=== PATIENT | male | born 1970 | race Caucasian/White ===

== ENCOUNTER 2024-06-01 10:33 | Inpatient (IN) | payer OTHER ==
[2024-06-01 11:12] LABS: D-Dimer 0.375 FEUug/mL (0-0.500); PT Prothrombin Time 11.4 SECONDS (9.4-12.5); Protime INR 1.02
[2024-06-01] MEDS ORDERED: ASPIRIN 81 MG CHEWABLE TABLET ONE (11:13)
[2024-06-01 11:15] LABS: Absolute Basophils 0.1 K/uL (0-0.5); Absolute Eosinophils 0.2 K/uL (0-0.5); Absolute Lymphocytes (CBC) 2.6 K/uL (0.7-4.9); Absolute Monocytes 0.9 K/uL (0.1-1.3); Absolute Neutrophil 8.2 K/uL (1.8-8.0); Basophils % 0.7 % (0-1.3); Eosinophils % 1.6 % (0-4.4); Hematocrit 46.2 % (39.6-49.0); Hemoglobin 15.4 g/dL (13.6-17.9); Lymphocytes % 21.7 % (15.3-44.8); MCH 31.5 pg (27.0-35.0); MCHC 33.4 g/dL (32.0-36.0); MCV 94.4 fL (80-100); MPV 7.9 fL (7.6-11.3); Monocytes % 7.2 % (3.3-12.3); Neutrophils % 68.8 % (41.7-73.7); Platelets 256 thou/uL (152-406); RBC Red Blood Cell Count 4.89 M/uL (4.33-5.43); Red Cell Distribution Width 14.5 % (12.1-15.2)
[2024-06-01 11:23] LABS: ALT/SGPT 26 U/L (16-61); AST/SGOT 18 U/L (15-37); Albumin 3.7 g/dL (3.4-5.0); Albumin/Globulin Ratio 0.8 (1.1-1.8); Alkaline Phosphatase 103 U/L (45-117); Anion Gap 8.7 mEq/L (5.0-15.0); BUN Blood Urea Nitrogen 13 mg/dL (7-18); Bicarbonate 25 mEq/L (21-32); Bilirubin Total 0.4 mg/dL (0.2-1.0); Globulin 4.7 g/dL (2.3-3.5); Glomerular Filtration Rate 99 ml/min (=/>90); Glucose Level 102 mg/dL (74-106); Magnesium 1.9 mg/dL (1.6-2.4); NT PRO-BNP 21 pg/mL (<125); Potassium 3.7 mEq/L (3.5-5.1); Protein, Total 8.4 g/dL (6.4-8.2); Sodium Level 138 mEq/L (136-145); Troponin High Sensitivity 11.6 pg/mL (<58.9)
[2024-06-01 11:24] LABS: Bilirubin Direct < 0.2 mg/dL (0-0.2); Bilirubin Indirect, Calculated 0.2 mg/dL (0.2-0.8)
--- NOTE | 2024-06-01 12:19 | RAD REPORT ---
EXAMINATION: ONE VIEW CHEST XR CLINICAL INDICATION: Male, 53 years old.,CHEST PAIN TECHNIQUE: Frontal chest projection is submitted. Examination is limited by patient positioning and t echnique. COMPARISON: No prior exam. FINDINGS: The lungs are well inflated and clear. No pneumothorax or sizable effusion. The heart is normal in s ize. IMPRESSION: No acute intrathoracic abnormalities.
--- NOTE | 2024-06-01 12:47 | ER ---
Nurse's Notes [facility] Name: Andrew Kang Age: 53 yrs Sex: Male : 1970 Arrival Date: 06/01/2024 Time: 10:33 Bed 7 Private MD: Diagnosis: Chest pain, unspecified Presentation: 06/01 10:42 Chief complaint: Patient states: CP and L arm pain for 1 day. Coronavirus screen: ll1 Client denies travel out of the [place] in the last 14 days. At this time, the client does not indicate any symptoms associated with coronavirus-19. Ebola Screen: Patient denies travel to an Ebola-affected area in the 21 days before illness onset. Initial Sepsis Screen: Does the patient meet any 2 criteria? No. Patient's initial sepsis screen is negative. Does the patient have a suspected source of infection? No. Patient's initial sepsis screen is negative. Risk Assessment: Do you want to hurt yourself or someone else? Patient reports no desire to harm self or others. Onset of symptoms was June 01, 2024. 10:42 Method Of Arrival: Ambulatory 1 10:42 Acuity: KATERIN 3 ll1 10:43 Ebola Screen: No symptoms or risks identified at this time. Initial Sepsis Screen: Does ph the patient meet any 2 criteria? No. Patient's initial sepsis screen is negative. Does the patient have a suspected source of infection? No. Patient's initial sepsis screen is negative. Risk Assessment: Do you want to hurt yourself or someone else? Patient reports no desire to harm self or others. Onset of symptoms was June 01, 2024. Triage Assessment: 10:43 General: Appears uncomfortable, Behavior is calm, cooperative, appropriate for age. ll1 Pain: Complains of pain in chest Pain radiates to left arm. Cardiovascular: Reports chest pain. Historical: - Allergies: 10:42 No Known Allergies; ll1 - Home Meds: 10:42 None [Active]; ll1 - PMHx: 10:42 None; ll1 - PSHx: 10:42 None; ll1 - Immunization history:: Adult Immunizations up to date. - Social history:: Smoking status: Patient reports the use of cigarette tobacco products, smokes one pack cigarettes per day. Screenin:42 [facility] ED Fall Risk Assessment (Adult) History of falling in the last 3 months, ph including since admission No falls in past 3 months (0 pts) Confusion or Disorientation No (0 pts) Intoxicated or Sedated No (0 pts) Impaired Gait No (0 pts) Mobility Assist Device Used No (0 pt) Altered Elimination No (0 pt) Score/Fall Risk Level 0 - 2 = Low Risk Oriented to surroundings, Maintained a safe environment, Hourly rounding (assess needs \T\ fall precautionary measures) done. Abuse screen: Denies threats or abuse. Denies injuries from another. Nutritional screening: No deficits noted. Tuberculosis screening: No symptoms or risk factors identified. Assessment: 10:57 General: Appears in no apparent distress. Behavior is calm, cooperative. Pain: ph Complains of pain in anterior aspect of left upper chest Pain radiates to left arm Pain began woke w/ pain this morning, denies pain at this time. Neuro: Level of Consciousness is awake, alert, obeys commands, Oriented to person, place, time, situation. Cardiovascular: Reports chest pain, Rhythm is regular. Respiratory: Airway is patent Respiratory effort is even, unlabored. GI: No signs and/or symptoms were reported involving the gastrointestinal system. Derm: Skin is pink, warm \T\ dry. Musculoskeletal: Circulation, motion, and sensation intact. Range of motion: intact in all extremities. 12:30 Reassessment: Patient appears in no apparent distress at this time. Patient and/or ph family updated on plan of care and expected duration. Pain level reassessed. Patient is alert, oriented x 3, equal unlabored respirations, skin warm/dry/pink. Patient denies pain at this time. 14:00 Reassessment: Patient appears in no apparent distress at this time. Patient and/or ph family updated on plan of care and expected duration. Pain level reassessed. Patient is alert, oriented x 3, equal unlabored respirations, skin warm/dry/pink. Patient denies pain at this time. Vital Signs: 10:42 Pulse 84; Resp 17; Pulse Ox 95% ; Weight 95.25 kg; Height 5 ft. 9 in. ; ll1 10:58 BP 135 / 84; Pulse 77; Resp 18; Pulse Ox 97% on R/A; ph 12:00 BP 132 / 78; Pulse 76; Resp 18; Pulse Ox 98% on R/A; ph 12:49 BP 137 / 81; Pulse 77; Resp 18; Pulse Ox 98% on R/A; ph 14:30 BP 115 / 80; Pulse 75; Resp 19; Temp 97.5; Pulse Ox 97% on R/A; ph 15:30 BP 128 / 78; Pulse 73; Resp 16; Temp 97.8; Pulse Ox 99% on R/A; ph 10:42 Body Mass Index 31.01 (95.25 kg, 175.26 cm) ll1 Vitals: 10:58 Cardiac Rhythm Assessment Sinus rhythm. ph ED Course: 10:36 Patient arrived in ED. mg5 10:39 Peggy Doran, RN is Primary Nurse. ph 10:40 Gill Fitch PA-C is PHCP. sb4 10:40 Manny Rodriguez MD is Attending Physician. sb4 10:42 Arm band placed on Patient placed in an exam room, on a stretcher. ll1 10:42 Patient has correct armband on for positive identification. Bed in low position. Call light in reach. Side rails up X 1. Client placed on continuous cardiac and pulse oximetry monitoring. NIBP monitoring applied. monitoring and evaluation advisor on. Door closed. Noise minimized. 10:44 Triage completed. ll1 10:45 EKG done, by ED staff, reviewed by Peggy Doran RN. hb 10:50 Initial lab(s) drawn, by ak, sent to lab. Inserted saline lock: 20 gauge in right ph antecubital area, using aseptic technique. Blood collected. Flushed with 10 mL NS. Patient maintains SpO2 saturation greater than 95% on room air. 10:57 CBC with Diff Sent. ph 10:57 Basic Metabolic Panel Sent. ph 10:57 D-Dimer Sent. ph 10:57 LFT's Sent. ph 10:57 Magnesium Sent. ph 10:57 NT PRO-BNP Sent. ph 10:57 Troponin HS Sent. ph 10:57 PT-INR Sent. ph 11:29 No provider procedures requiring assistance completed. ph 11:40 XRAY Chest (1 view) In Process Unspecified. EDMS 12:46 Kameron Kinsey MD is Hospitalizing Provider. sb4 12:49 Patient admitted, IV remains in place. ph Administered Medications: 11:28 Drug: Aspirin PO Chewable Tablet 324 mg PO once; 81 mg tablets x 4 Route: PO; ph 12:00 Follow up: Response: No adverse reaction ph Medication: 10:43 VIS not applicable for this client. ph Outcome: 12:46 Decision to Hospitalize by Provider. sb4 15:50 Admitted to Tele accompanied by tech, via wheelchair, with chart, ph 15:50 Condition: good 15:50 Instructed on the need for admit, ph 15:55 Patient left the ED. kc6 Signatures: Dispatcher [employer] EDPeggy Coyle RN RN Krupa Swift RN RN Alla Rene RN RN ll1 Senait Layton RN RN kc6 Gill Fitch, PA-C PA-C sb4 Xiomara Roberto 5
--- NOTE | 2024-06-01 12:47 | EDPHYS ---
Physician Documentation [facility] Name: Andrew Kang Age: 53 yrs Sex: Male : 1970 Arrival Date: 06/01/2024 Time: 10:33 Bed 7 Private MD: ED Physician Manny Rodriguez HPI: 06/01 10:50 This 53 yrs old Male presents to ER via Ambulatory with complaints of Chest Pain. sb4 10:50 The patient or guardian reports chest pain that is located primarily in the substernal sb4 area. Onset: this morning. The pain radiates to the left arm. Associated signs and symptoms: Pertinent positives: shortness of breath. The chest pain is described as a heaviness. Duration: The patient or guardian reports multiple episodes, that wax and wane. Modifying factors: The symptoms are alleviated by rest, the symptoms are aggravated by exertion. The patient has not experienced similar symptoms in the past. 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 Historical: - Allergies: 10:42 No Known Allergies; ll1 - Home Meds: 10:42 None [Active]; ll1 - PMHx: 10:42 None; ll1 - PSHx: 10:42 None; ll1 - Immunization history:: Adult Immunizations up to date. - Social history:: Smoking status: Patient reports the use of cigarette tobacco products, smokes one pack cigarettes per day. ROS: 10:50 Constitutional: Negative for fever, chills, and weight loss, sb4 10:50 Cardiovascular: Positive for chest pain, 10:50 All other systems are negative, Exam: 10:50 Head/Face: Normocephalic, atraumatic. Eyes: Extra-ocular motions intact. Periorbital sb4 areas with no swelling, redness, or edema. ENT: Mucous membranes moist. Cardiovascular: Regular rate and rhythm with a normal S1 and S2. Respiratory: No increased work of breathing, no retractions or nasal flaring. Abdomen/GI: Soft, non-tender, no distension. Skin: Warm, dry with normal turgor. Normal color with no rashes, no lesions, and no evidence of cellulitis. 10:50 Constitutional: The patient appears alert, awake, uncomfortable, Vital Signs: 10:42 Pulse 84; Resp 17; Pulse Ox 95% ; Weight 95.25 kg; Height 5 ft. 9 in. ; ll1 10:58 BP 135 / 84; Pulse 77; Resp 18; Pulse Ox 97% on R/A; ph 12:00 BP 132 / 78; Pulse 76; Resp 18; Pulse Ox 98% on R/A; ph 12:49 BP 137 / 81; Pulse 77; Resp 18; Pulse Ox 98% on R/A; ph 14:30 BP 115 / 80; Pulse 75; Resp 19; Temp 97.5; Pulse Ox 97% on R/A; ph 15:30 BP 128 / 78; Pulse 73; Resp 16; Temp 97.8; Pulse Ox 99% on R/A; ph 10:42 Body Mass Index 31.01 (95.25 kg, 175.26 cm) ll1 MDM: 10:40 Medical Screening Exam initiated sb4 12:28 The patient was given aspirin in the Emergency Department. Scoring Tools HEART Score: sb4 History: ECG: Age: Risk Factors: > or = 3 Risk factors for atherosclerotic disease (2), Troponin: Total Score = 5. 12:45 Data reviewed: vital signs, nurses notes, lab test result(s), EKG, radiologic studies, sb4 and as a result, I will admit patient. Consideration of Admission/Observation Patient was admitted/placed on observation. Management of patient was discussed with the following: Golf Starter [employer] Ranger: yury, recommends admission for ACS rule out. Historians other than the Patient: Spouse/Significant Other: . Counseling: I had a detailed discussion with the patient and/or guardian regarding the historical points, exam findings, and any diagnostic results supporting the discharge/admit diagnosis, the presence of at least one elevated blood pressure reading (>120/80) during this emergency department visit, lab results, radiology results, the need for further work-up and treatment in the hospital. 06/01 10:45 Order name: Basic Metabolic Panel; Complete Time: 11:26 sb4 06/01 10:45 Order name: CBC with Diff; Complete Time: 11:17 sb4 06/01 10:45 Order name: D-Dimer; Complete Time: 11:13 sb4 06/01 10:45 Order name: LFT's; Complete Time: 11: sb4 06/01 10:45 Order name: Magnesium; Complete Time: 11:26 sb4 06/01 10:45 Order name: NT PRO-BNP; Complete Time: 11:26 sb4 06/01 10:45 Order name: PT-INR; Complete Time: 11:13 sb4 06/01 10:45 Order name: Troponin HS; Complete Time: 11:26 sb4 06/01 14:40 Order name: Basic Metabolic Panel EDMS 06/01 14:40 Order name: Basic Metabolic Panel EDMS 06/01 14:40 Order name: CBC with Automated Diff EDMS 06/01 14:40 Order name: CBC with Automated Diff EDMS 06/01 14:40 Order name: Lipid Profile EDMS 06/01 14:40 Order name: Lipid Profile EDMS 06/01 14:40 Order name: Troponin High Sensitivity EDMS 06/01 14:40 Order name: Troponin High Sensitivity EDMS 06/01 14:40 Order name: Troponin High Sensitivity EDMS 06/01 14:40 Order name: Troponin High Sensitivity EDMS 06/01 10:45 Order name: XRAY Chest (1 view); Complete Time: 12:25 sb4 06/01 14:40 Order name: Echo with Doppler EDMS 06/01 14:40 Order name: CONS Physician Consult EDMS 06/01 10:45 Order name: Cardiac monitoring; Complete Time: 10:57 sb4 06/01 10:45 Order name: EKG - Nurse/Tech; Complete Time: :57 sb4 06/01 10:45 Order name: IV Saline Lock; Complete Time: 10:57 sb4 06/01 10:45 Order name: Labs collected and sent; Complete Time: : sb4 06/01 10:45 Order name: O2 Per Protocol; Complete Time: 10:57 sb4 06/01 10:45 Order name: O2 Sat Monitoring; Complete Time: 10: sb4 EC:50 Rate is 81 beats/min. Rhythm is regular, Normal Sinus Rhythm. NC interval is normal at sb4 152 msec. QRS interval is normal at 88 msec. QT interval is normal at 388 msec. No Q waves. T waves are Normal. No ST changes noted. Clinical impression: Normal ECG and No evidence of ischemia. Interpreted by me. Reviewed by me. Administered Medications: 11:28 Drug: Aspirin PO Chewable Tablet 324 mg PO once; 81 mg tablets x 4 Route: PO; ph 12:00 Follow up: Response: No adverse reaction ph Disposition Summary: 06/01/24 12:46 Hospitalization Ordered Notes: Hospitalization Status: Observation sb4 Provider: Kameron Kinsey Location: Telemetry/MedSurg (observation) sb4 Condition: Fair sb4 Problem: new sb4 Symptoms: are unchanged sb4 Bed/Room Type: Standard sb4 Room Assignment: 207(06/01/24 13:50) bd Diagnosis - Chest pain, unspecified sb4 Forms: - Medication Reconciliation Form sb4 - SBAR form sb4 - Leadership Thank You Letter sb4 Signatures: Dispatcher [employer] EDMS ConstantineTara forte Peggy Barber RN RN Alla Li RN RN ll1 Gill Fitch PA-C PA-C sb4 Corrections: (The following items were deleted from the chart) 10:45 10:45 BASIC METABOLIC PANEL+C.LAB.BRZ ordered. EDMS EDMS 10:45 10:45 CBC+H.LAB.BRZ ordered. EDMS EDMS 10:45 10:45 D-DIMER+COAG.LAB.BRZ ordered. EDMS EDMS 10:45 10:45 HEPATIC FUNCTION+C.LAB.BRZ ordered. EDMS EDMS 10:45 10:45 MAGNESIUM+C.LAB.BRZ ordered. EDMS EDMS 10:45 10:45 PROBNP+C.LAB.BRZ ordered. EDMS EDMS 10:45 10:45 PROTIME (+INR)+COAG.LAB.BRZ ordered. EDMS EDMS 10:45 10:45 Troponin High Sensitivity+C.LAB.BRZ ordered. EDMS EDMS 10:45 10:45 Chest Single View+RAD.RAD.BRZ ordered. EDMS EDMS 12:29 12:28 Scoring Tools HEART Score: History: ECG: Age: Risk Factors: > or = 3 Risk factors sb4 for atherosclerotic disease (2), Troponin: Total Score = 4 sb4 13:50 12:46 sb4 bd
[2024-06-01] MEDS ORDERED: ACETAMINOPHEN 500 MG TAB PO PRN (14:36)
[2024-06-01] MEDS ORDERED: ALPRAZOLAM 0.25 MG TABLET PO PRN (14:36)
[2024-06-01] MEDS ORDERED: ENOXAPARIN 40 MG/0.4 ML SQ SCH (16:00)
[2024-06-01] MEDS ORDERED: MORPHINE 4 MG/ML SYR IV PRN (16:08)
[2024-06-01 16:24] VITALS: BMI 31.0
--- NOTE | 2024-06-01 18:28 | P.HP ---
Certification for Inpatient Patient admitted to: Observation With expected LOS: <2 Midnights Patient will require the following post-hospital care: None Practitioner: I am a practitioner with admitting privileges, knowledge of patient current condition, hospital course, and medical plan of care. Services: Services provided to patient in accordance with Admission requirements found in Title 42 Section 412.3 of the Code of Federal Regulations Patient History Date of Service: 06/01/24 Reason for admission: Unstable angina History of Present Illness: Mr. Kang is a 53-year-old male who denies any significant past medical history. He does have a significant cardiac family history (Father at pt's current age) so saw [facility] cardiology clinic last month for cardiac workup. 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 When he awoke this morning he felt pressure in his central chest. As he got to work, the pressure increased and began moving down his left arm. He became short of breath but denies diaphoresis or nausea. His current CONG score is 5, initial troponin negative, possible hyperacute T waves in V3 through V5. Patient smokes 1 pack/day and imbibes 3 alcoholic drinks 2 nights a week. Cardiology was consulted from the emergency department and the patient will be admitted for ACS rule out with possible left heart cath in the a.m. Allergies No Known Allergies Allergy (Unverified 06/01/24 15:59) Home Medications: NK [No Home Meds] 06/01/24 - Past Medical/Surgical History Has patient received pneumonia vaccine in the past: No Diabetic: No -: evelina -: back sx -: wrist sx Psychosocial/ Personal History: Lives at home with his . 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 Father with significant cardiac history at patient's age - Family History Father -: Heart disease, Hypertension - Social History Smoking Status: Current every day smoker Alcohol use: Yes CD- Drugs: No Caffeine use: Yes Place of Residence: Home Review of Systems 10-point ROS is otherwise unremarkable General: As per HPI Eyes: Unremarkable ENT: Unremarkable Respiratory: Shortness of Breath, SOB with Excertion Cardiovascular: Chest Pain Gastrointestinal: Unremarkable Genitourinary: Unremarkable Musculoskeletal: Unremarkable Integumentary: Unremarkable Neurological: Unremarkable Lymphatics: Unremarkable Physical Examination - Vital Signs Temperature: 98.6 F Blood Pressure: 134/74 Pulse: 67 Respirations: 16 Pulse Ox (%): 99 - Physical Exam General: Alert, In no apparent distress, Oriented x3 HEENT: Atraumatic, Normocephalic Neck: Supple Respiratory: Clear to auscultation bilaterally, Normal air movement Cardiovascular: No edema, Regular rate/rhythm, Normal S1 S2 Capillary refill: <2 Seconds Gastrointestinal: Normal bowel sounds Musculoskeletal: No clubbing, No swelling Integumentary: No rashes Neurological: Normal speech, Normal tone, Normal affect Lymphatics: No axilla or inguinal lymphadenopathy External genitalia: Deferred Rectal: Deferred - Studies Laboratory Data (last 24 hrs) 06/01/24 06/01/24 06/01/24 10:50 10:50 10:50 WBC 11.90 H Hgb 15.4 Hct 46.2 Plt Count 256 PT 11.4 INR 1.02 Sodium 138 Potassium 3.7 BUN 13 Creatinine 0.92 Glucose 102 Magnesium 1.9 Total Bilirubin 0.4 AST 18 ALT 26 Alkaline Phosphatase 103 Assessment and Plan - Plan Unstable angina Subjective: Patient admitted with chest pain. Pain is 2 /10. Pain does radiate to the left arm. Admits to shortness of breath. Patient denies nausea, vomiting, diaphoresis, diarrhea Patient's chest pain has improved Plan: 1. Serial troponins and EKG 2. Appreciate consultation from cardiology 3. Echocardiogram and stress test done recently at [facility] cardiology 4. Antiplatelet therapy, anticoagulation, beta-juan, statin, and O2 as needed 5. IV morphine for pain control 6. Nitro prn Discharge Plan: Home Plan to discharge in: 24 Hours - Advance Directives Does patient have a Living Will: No Does patient have a Durable POA for Healthcare: No - Code Status/Comfort Care Code Status Assessed: Yes (Full) Critical Care: No
[2024-06-01] MEDS: METOPROLOL TAR 50 MG TAB PO SCH (21:15)
[2024-06-01] MEDS: ENOXAPARIN 100 MG/ML SYR SQ SCH (21:15)
[2024-06-02 05:19] LABS: Absolute Basophils 0.1 K/uL (0-0.5); Absolute Eosinophils 0.4 K/uL (0-0.5); Absolute Lymphocytes (CBC) 4.2 K/uL (0.7-4.9); Absolute Monocytes 1.1 K/uL (0.1-1.3); Absolute Neutrophil 5.3 K/uL (1.8-8.0); Basophils % 1.2 % (0-1.3); Eosinophils % 3.6 % (0-4.4); Hematocrit 43.8 % (39.6-49.0); Lymphocytes % 37.8 % (15.3-44.8); MCH 32.1 pg (27.0-35.0); MCHC 34.2 g/dL (32.0-36.0); MCV 93.7 fL (80-100); MPV 7.7 fL (7.6-11.3); Monocytes % 9.9 % (3.3-12.3); Neutrophils % 47.5 % (41.7-73.7); Platelets 254 thou/uL (152-406); RBC Red Blood Cell Count 4.68 M/uL (4.33-5.43); Red Cell Distribution Width 14.9 % (12.1-15.2)
[2024-06-02 05:40] LABS: Anion Gap 7.2 mEq/L (5.0-15.0); Potassium 4.2 mEq/L (3.5-5.1)
[2024-06-02 05:53] LABS: Troponin High Sensitivity 189.4 pg/mL (<58.9)
[2024-06-02] MEDS: ASPIRIN EC 81 MG TAB PO SCH (06:05)
[2024-06-02] MEDS: SODIUM CHLORIDE 0.9% 10ML INJ IV SCH (09:00)
[2024-06-02] MEDS ORDERED: ASPIRIN EC 81 MG TAB PO SCH (09:00)
[2024-06-02] MEDS: PANTOPRAZOLE 40 MG INJ IV SCH (09:00)
[2024-06-02] MEDS: lisinopriL 10 MG TAB PO SCH (09:00)
[2024-06-02] MEDS: MIDAZOLAM HCL 2 MG/2 ML INJ ONE (10:06)
[2024-06-02] MEDS: FENTANYL CITR 100 MCG/2 ML ONE (10:06)
--- NOTE | 2024-06-02 10:30 | P.CNS ---
Date of Consult: 06/02/24 Chief Complaint: Unstable angina History of Present Illness: Patient with PMH of HTN, HLD, obesity presented with chest pain that started yesterday, mid chest, radiated to left arm, pressure in nature. denies any other cardiac symptoms Allergies No Known Allergies Allergy (Unverified 06/01/24 15:59) Home medications list reviewed: Yes Home Medications: NK [No Home Meds] 06/01/24 - Past Medical/Surgical History Diabetic: No -: evelina -: back sx -: wrist sx Psychosocial/ Personal History: Lives at home with his . 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 Father with significant cardiac history at patient's age - Family History Father Medical History: Heart disease, Hypertension - Social History Smoking Status: Current every day smoker Alcohol use: Yes CD- Drugs: No Caffeine use: Yes Place of Residence: Home Review of Systems 10-point ROS is otherwise unremarkable Physical Examination Temp Pulse Resp BP Pulse Ox 97.6 F 55 16 116/55 L 96 06/02/24 08:00 06/02/24 09:00 06/02/24 08:00 06/02/24 09:00 06/02/24 08:00 General: Alert, In no apparent distress HEENT: Atraumatic, PERRLA, Mucous membr. moist/pink, EOMI, Sclerae nonicteric Neck: Supple, 2+ carotid pulse no bruit, No LAD, Without JVD or thyroid abnormality Respiratory: Clear to auscultation bilaterally, Normal air movement Cardiovascular: Regular rate/rhythm, Normal S1 S2 Gastrointestinal: Normal bowel sounds, No tenderness Musculoskeletal: No tenderness Integumentary: No rashes Neurological: Normal gait, Normal speech, Normal tone, Normal affect Lymphatics: No axilla or inguinal lymphadenopathy Laboratory Data (last 24 hrs) 06/01/24 06/01/24 06/01/24 10:50 10:50 10:50 WBC 11.90 H Hgb 15.4 Hct 46.2 Plt Count 256 PT 11.4 INR 1.02 Sodium 138 Potassium 3.7 BUN 13 Creatinine 0.92 Glucose 102 Magnesium 1.9 Total Bilirubin 0.4 AST 18 ALT 26 Alkaline Phosphatase 103 - Problems (1) NSTEMI (non-ST elevated myocardial infarction) Current Visit: Yes Status: Acute Plan: NPO for coronary angiogram ASA 81 mg daily Lipitor 40 mg daily (2) HTN (hypertension) Current Visit: Yes Status: Acute Plan: continue metoprolol and lisinopril (3) HLD (hyperlipidemia) Current Visit: Yes Status: Acute Plan: continue lipitor 40 mg daily
[2024-06-02] MEDS ORDERED: NITROGLYCERIN/D5W 50 MG/250 ML BTL IV ONE (10:32)
[2024-06-02] MEDS ORDERED: HEPARIN 10,000 UNIT/10 ML VIAL IV ONE (10:32)
[2024-06-02] MEDS ORDERED: LIDOCAINE 1% 20 ML MDV ONE (10:32)
[2024-06-02] MEDS ORDERED: HEPA 1000U/500MLS 2,000 UNIT/1,000 ML BAG IV ONE (10:32)
[2024-06-02] MEDS ORDERED: TICAGRELOR 90 MG TABLET PO ONE (10:33)
[2024-06-02] MEDS ORDERED: HEPARIN 5000 UNIT/ML 1 ML VIAL ONE (10:33)
[2024-06-02] MEDS ORDERED: ATROPINE SULF 1 MG/10 ML SYR IV ONE (10:33)
[2024-06-02] MEDS ORDERED: CLOPIDOGREL 75 MG TABLET ONE (10:33)
[2024-06-02] MEDS: NA CHLORIDE 0.9% 500 ML ONE (10:42)
--- NOTE | 2024-06-02 12:31 | P.PN ---
Subjective Date of Service: 06/02/24 Chief Complaint: Unstable angina -> NSTEMI Subjective: No C/O voiced Physical Examination - Vital Signs Temperature: 97.6 F Blood Pressure: 116/55 Pulse: 55 Respirations: 16 Pulse Ox (%): 96 - Physical Exam General: Alert, In no apparent distress, Oriented x3 HEENT: Atraumatic, Normocephalic Neck: Supple Respiratory: Clear to auscultation bilaterally, Normal air movement Cardiovascular: No edema, Normal pulses, Regular rate/rhythm, Normal S1 S2 Capillary refill: <2 Seconds Gastrointestinal: Soft and benign Musculoskeletal: No clubbing, No swelling Integumentary: No rashes, No breakdown Neurological: Normal gait, Normal speech, Normal tone, Normal affect Lymphatics: No axilla or inguinal lymphadenopathy External genitalia: Deferred Rectal: Deferred Assessment And Plan - Plan Unstable angina -> NSTEMI Subjective: Patient admitted with chest pain. Pain is 2 /10. Pain does radiate to the left arm. Admits to shortness of breath. Patient denies nausea, vomiting, diaphoresis, diarrhea Patient's chest pain has improved. NPO for [facility] Plan: 1. Serial troponins and EKG 11.6 -> 135.2 -> 231.1 2. Appreciate consultation from cardiology - 06/02/24 Dr. Schaefer following 3. Echocardiogram and stress test done recently at [facility] cardiology 4. Antiplatelet therapy, anticoagulation, beta-juan, statin, and O2 as needed 5. IV morphine for pain control 6. Nitro prn Discharge Plan: Home Plan to discharge in: 24 Hours
--- NOTE | 2024-06-02 12:53 | EKG ---
Test Date: 2024-06-01 Test Time: 10:45:40 Ob Tech: HB MEASUREMENT RESULTS: Intervals: Rate: 81 AL: 152 QRSD: 88 QT: 388 QTc: 450 [place]: P: 52 AL: 152 QRS: 42 T: 33 INTERPRETIVE STATEMENTS: Normal sinus rhythm Normal ECG No previous ECG available for comparison Electronically Signed On 06-02-24 12:50:22 CDT by Stephen Schaefer
--- NOTE | 2024-06-02 13:46 | ECHO ---
HEIGHT: 5 ft 9 in WEIGHT: 210 lb 0 oz DATE OF STUDY: 06/01/[address]: Kameron Kinsey MD 2-DIMENSIONAL: YES M.MODE: YES DOPPLER: YES COLOR FLOW: YES TDS: NO PORTABLE: YES DEFINITY: NO BUBBLE STUDY: NO DIAGNOSIS: CHEST PAIN, RULE OUT ACUTE CORONARY SYNDROME. CARDIAC HISTORY: CATHERIZATION: NO SURGERY: NO PROSTHETIC VALVE: NO PACEMAKER: NO MEASUREMENTS (cm) DIASTOLIC (NORMALS) SYSTOLIC (NORMALS) IVSd 1.2 (0.6-1.2) LA Diam 2.6 (1.9-4.0) LVEF 60-65% LVIDd 3.5 (3.5-5.7) LVIDs 2.5 (2.0-3.5) %FS 28% LVPWd 1.2 (0.6-1.2) Ao Diam 2.7 (2.0-3.7) 2 DIMENSIONAL ASSESSMENT: RIGHT ATRIUM: NORMAL LEFT ATRIUM: NORMAL RIGHT VENTRICLE: NORMAL LEFT VENTRICLE: NORMAL TRICUSPID VALVE: NORMAL MITRAL VALVE: NORMAL PULMONIC VALVE: NORMAL AORTIC VALVE: NORMAL PERICARDIAL EFFUSION: NONE AORTIC ROOT: NORMAL LEFT VENTRICULAR WALL MOTION: NORMAL. DOPPLER/COLOR FLOW: NORMAL. COMMENTS: 1. NORMAL LEFT VENTRICULAR SYSTOLIC FUNCTION. LEFT VENTRICULAR EJECTION FRACTION 60-65%. NORMAL WALL MOTION. 2. NORMAL DIASTOLIC FUNCTION. TECHNOLOGIST: LONI BARNES
[2024-06-02] MEDS: ATORVASTATIN 40 MG TAB PO SCH (20:19)
[2024-06-03 04:25] VITALS: O2SAT 95
--- NOTE | 2024-06-03 09:56 | P.DS ---
Admission Date: 06/02/24 Discharge Date: 06/03/24 Hospital Course: Pt seen and examined. I agree with the note by the CHEMICAL RESEARCH WORKER. Left heart cath shows multivessel CAD. Pt will be transferred to [facility] for CABG. Will continue cardiac meds. Will transfer once a bed is available. Pt was advised to lose weight. Ok to discharge pt. <Sheridan Nelson - Last Filed: 06/03/24 14:24> Admission Date: 06/02/24 Discharge Date: 06/03/24 Reason for Admission: Unstable angina -> NSTEMI Consultations: Dr. Schaefer Procedures: Left heart cath Brief History of Present Illness: Mr. Kang is a 53-year-old male who denies any significant past medical history. He does have a significant cardiac family history (Father at pt's current age) so saw [facility] cardiology clinic last month for cardiac workup. 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 When he awoke this morning he felt pressure in his central chest. As he got to work, the pressure increased and began moving down his left arm. He became short of breath but denies diaphoresis or nausea. His current CONG score is 5, initial troponin negative, possible hyperacute T waves in V3 through V5. Patient smokes 1 pack/day and imbibes 3 alcoholic drinks 2 nights a week. Cardiology was consulted from the emergency department and the patient will be admitted for ACS rule out with possible left heart cath in the a.m. Hospital Course: Mr. Kang went for left heart cardiac cath mid morning on 06/02/2024. He has multivessel disease and Dr. Schaefer initiated transfer for CABG to the [facility]. He has been accepted, administrative approval has been received, awaiting bed placement. At this time he is pain-free, vital signs stable, remains on telemetry, aspirin, lisinopril, metoprolol, atorvastatin, and Lovenox 100 mg SQ every 12h. We have discussed plan of care and patient voices understanding. Opportunities for questions ongoing. <Lizzy Jason - Last Filed: 06/03/24 19:02> Disposition: TRANSFER TO [facility] Discharge Condition: GOOD Vital Signs/Physical Exam: Temp Pulse Resp BP Pulse Ox 97.7 F 53 15 121/72 99 06/03/24 14:22 06/03/24 14:22 06/03/24 14:22 06/03/24 14:22 06/03/24 14:22 Laboratory Data at Discharge: WBC 11.20 thou/uL (4.3-10.9) H 06/02/24 04:58 Hgb 15.0 g/dL (13.6-17.9) 06/02/24 04:58 Hct 43.8 % (39.6-49.0) 06/02/24 04:58 Plt Count 254 thou/uL (152-406) 06/02/24 04:58 PT 11.4 SECONDS (9.4-12.5) 06/01/24 10:50 INR 1.02 06/01/24 10:50 Sodium 138 mEq/L (136-145) 06/02/24 04:58 Potassium 4.2 mEq/L (3.5-5.1) D 06/02/24 04:58 BUN 15 mg/dL (7-18) 06/02/24 04:58 Creatinine 0.98 mg/dL (0.70-1.30) 06/02/24 04:58 Glucose 105 mg/dL (74-106) 06/02/24 04:58 Magnesium 1.9 mg/dL (1.6-2.4) 06/01/24 10:50 Total Bilirubin 0.4 mg/dL (0.2-1.0) 06/01/24 10:50 AST 18 U/L (15-37) 06/01/24 10:50 ALT 26 U/L (16-61) 06/01/24 10:50 Alkaline Phosphatase 103 U/L (45-117) 06/01/24 10:50 Triglycerides 319 mg/dL (<150) H 06/02/24 04:58 Cholesterol 215 mg/dL (<200) H 06/02/24 04:58 HDL Cholesterol 27 mg/dL (40-60) L 06/02/24 04:58 Cholesterol/HDL Ratio 7.96 06/02/24 04:58 <Sheridan Nelson - Last Filed: 06/03/24 14:24> Vital Signs/Physical Exam: Temp Pulse Resp BP Pulse Ox 97.7 F 53 15 121/72 99 06/03/24 08:00 06/03/24 09:43 06/03/24 08:00 06/03/24 09:43 06/03/24 08:00 General: Alert, In no apparent distress, Oriented x3 HEENT: Atraumatic, Normocephalic Neck: Supple Respiratory: Normal air movement Cardiovascular: Normal pulses, Regular rate/rhythm, Normal S1 S2 Capillary refill: <2 Seconds Gastrointestinal: Normal bowel sounds, Soft and benign Musculoskeletal: No clubbing Integumentary: No rashes Neurological: Normal speech, Normal tone, Normal affect Lymphatics: No axilla or inguinal lymphadenopathy External genitalia: Deferred Rectal: Deferred Laboratory Data at Discharge: WBC 11.20 thou/uL (4.3-10.9) H 06/02/24 04:58 Hgb 15.0 g/dL (13.6-17.9) 06/02/24 04:58 Hct 43.8 % (39.6-49.0) 06/02/24 04:58 Plt Count 254 thou/uL (152-406) 06/02/24 04:58 PT 11.4 SECONDS (9.4-12.5) 06/01/24 10:50 INR 1.02 06/01/24 10:50 Sodium 138 mEq/L (136-145) 06/02/24 04:58 Potassium 4.2 mEq/L (3.5-5.1) D 06/02/24 04:58 BUN 15 mg/dL (7-18) 06/02/24 04:58 Creatinine 0.98 mg/dL (0.70-1.30) 06/02/24 04:58 Glucose 105 mg/dL (74-106) 06/02/24 04:58 Magnesium 1.9 mg/dL (1.6-2.4) 06/01/24 10:50 Total Bilirubin 0.4 mg/dL (0.2-1.0) 06/01/24 10:50 AST 18 U/L (15-37) 06/01/24 10:50 ALT 26 U/L (16-61) 06/01/24 10:50 Alkaline Phosphatase 103 U/L (45-117) 06/01/24 10:50 Triglycerides 319 mg/dL (<150) H 06/02/24 04:58 Cholesterol 215 mg/dL (<200) H 06/02/24 04:58 HDL Cholesterol 27 mg/dL (40-60) L 06/02/24 04:58 Cholesterol/HDL Ratio 7.96 06/02/24 04:58 <Lizzy Jason - Last Filed: 06/03/24 19:02> <Sheridan Nelson - Last Filed: 06/03/24 14:24> Diet: AHA Activity: Bedrest (Incentive spirometer/teds) <Lizzy Jason - Last Filed: 06/03/24 19:02> Home Medications: NK [No Home Meds] 06/01/24 Physician Discharge Instructions: Awaiting transfer to [facility] for CABG evaluation Followup: Collin Sahu DO [Primary Care Provider] - Stephen Schaefer MD [ACTIVE - CAN ADMIT] -
--- NOTE | 2024-06-03 14:22 | P.PN ---
Subjective Date of Service: 06/03/24 Chief Complaint: Unstable angina -> NSTEMI Subjective: No new changes, No C/O voiced, Tolerating diet, Ambulating, Improving Review of Systems 10-point ROS is otherwise unremarkable Physical Examination - Vital Signs Temperature: 97.7 F Blood Pressure: 121/72 Pulse: 53 Respirations: 15 Pulse Ox (%): 99 - Physical Exam General: Alert, In no apparent distress HEENT: Atraumatic, PERRLA, EOMI Neck: Supple, JVD not distended Respiratory: Clear to auscultation bilaterally, Normal air movement Cardiovascular: Regular rate/rhythm, Normal S1 S2 Gastrointestinal: Normal bowel sounds, No tenderness Musculoskeletal: No tenderness Integumentary: No rashes Neurological: Normal speech, Normal tone, Normal affect Lymphatics: No axilla or inguinal lymphadenopathy - Studies Medications List Reviewed: Yes Assessment And Plan - Current Problems (Diagnosis) (1) NSTEMI (non-ST elevated myocardial infarction) Current Visit: Yes Status: Acute Plan: coronary angiogram done and shows multivessel CAD (LAD/LCX and RCA) Patient is getting transferred for inpatient CABG evaluation. ASA 81 mg daily Lipitor 40 mg daily (2) HTN (hypertension) Current Visit: Yes Status: Acute Plan: continue metoprolol and lisinopril (3) HLD (hyperlipidemia) Current Visit: Yes Status: Acute Plan: continue lipitor 40 mg daily
--- NOTE | 2024-06-03 18:04 | P.PN ---
Date of Service: 06/03/24 Subjective Date of Service: 06/02/24 Chief Complaint: Unstable angina -> NSTEMI Subjective: No C/O voiced Physical Examination - Vital Signs reviewed, no pain - Physical Exam General: Alert, In no apparent distress, Oriented x3 HEENT: Atraumatic, Normocephalic Neck: Supple Respiratory: Clear to auscultation bilaterally, Normal air movement Cardiovascular: No edema, Normal pulses, Regular rate/rhythm, Normal S1 S2 Capillary refill: <2 Seconds Gastrointestinal: Soft and benign Musculoskeletal: No clubbing, No swelling Integumentary: No rashes, No breakdown Neurological: Normal gait, Normal speech, Normal tone, Normal affect Lymphatics: No axilla or inguinal lymphadenopathy External genitalia: Deferred Rectal: Deferred Assessment And Plan - Plan Unstable angina -> NSTEMI Subjective: Patient admitted with chest pain. Pain is 2 /10. Pain does radiate to the left arm. Admits to shortness of breath. Patient denies nausea, vomiting, diaphoresis, diarrhea Patient's chest pain has improved. NPO for [facility] Plan: 1. Serial troponins and EKG 11.6 -> 135.2 -> 231.1 2. Appreciate consultation from cardiology - 06/02/24 Dr. Schaefer following 3. Echocardiogram and stress test done recently at [facility] cardiology 4. Antiplatelet therapy, anticoagulation, beta-juan, statin, and O2 as needed 5. IV morphine for pain control 6. Nitro prn 06/02/24 Pt went to laundry laborer - +multivessel disease. Dr. Schaefer initiated transfer for CABG eval to [facility] and Administrative approval obtained. Awaiting bed availability. Pt hemodynamically stable at this time. 06/03/24 Awaiting [facility] bed. Pt painfree. Cardiac diet Continuing ASA, Lipitor, Metoprolol, and Lisinopril Discharge Plan: Home Plan to discharge in: 24 Hours 30 min <Lizzy Jason - Last Filed: 06/03/24 18:04> Pt seen and examined. I agree with the note by the LEAFLET OR NEWSPAPER DELIVERER. Pt had cardiac cath that showed multivessel CAD. Pt will be transferred to [facility] for CABG. <Sheridan Nelson - Last Filed: 06/04/24 22:12>
[2024-06-03 20:44] VITALS: BP 144/68
[2024-06-03 21:14] VITALS: TEMP 97.5
--- NOTE | 2024-06-04 13:31 | OP ---
Date of Procedure: 06/02/2024 Surgeon: Stephen Schaefer Procedures Performed: 1.Left heart catheterization. 2.Selective coronary angiogram. Indication For Procedure: [id number]. Complications: None. Estimated Blood Loss: Less than 50 cc. Access: Right radial, closed by TR band. Sedation Time: 20 minutes with 1 of Versed and 25 of fentanyl. Description Of Procedure: After risks, and benefits, and alternatives were explained to the patient, patient agreed to proceed with the procedure and signed informed consent. The patient was brought b [facility] into the laborer brush clearing, prepped and draped in sterile fashion. Time-out was performed. Sedation was administered. Next, right radial access was obtained. A Seaton 4.0 catheter was advanced over a J-wi re to the LV cavity. LVEDP was obtained. Pullback did not show any gradient. Same catheter was use d for selective angiogram. The catheter was removed over a J-wire. Sheath was removed. TR band was applied. Hemostasis was achieved and the patient was moved back to Recovery in stable condition. Findings: 1.Left main normal. 2.LAD; proximal 70% disease, then mild luminal irregularities. 3.Left circ; proximal 80% disease extending into the large OM1. 4.RCA; proximal diffuse 70% disease, then mid 90% disease, then mild luminal irregularities. 5.RPDA; mild luminal irregularities. 6.LVEDP 15 mmHg. Assessment And Plan: Significant proximal to mid LAD disease, left circ into OM1 disease, and mid RC A disease. Plan will be inpatient transfer for CABG evaluation. HENRRY/LLOYD Voice ID: [id number] Report ID: [id number]
== END 2024-06-03 23:10 | disposition short-term general hospital (02) | DRG 282 ==
LOC: ER 10:33 → ERHOLD 14:36 → 2ND 15:25 → OBSVTOIN 06-02 18:15
PROVIDERS: ADMIT Hospitalist; ATTEND Hospitalist
PROC: 4A023N7 Measurement of Cardiac Sampling and Pressure, Left Heart, Percutaneous Approach (ICD-10-PCS; principal; 2024-06-02)
PROC: B2111ZZ Fluoroscopy of Multiple Coronary Arteries using Low Osmolar Contrast (ICD-10-PCS; 2024-06-02)
DX: I21.4 Non-ST elevation (NSTEMI) myocardial infarction (principal); E78.5 Hyperlipidemia, unspecified; I10 Essential (primary) hypertension; E66.9 Obesity, unspecified; I25.110 Atherosclerotic heart disease of native coronary artery with unstable angina pectoris; F17.210 Nicotine dependence, cigarettes, uncomplicated; Z68.31 Body mass index [BMI] 31.0-31.9, adult; Z90.49 Acquired absence of other specified parts of digestive tract
CPT/HCPCS: 36415; 71045; 76937; 80048; 80061; 80076; 83735; 83880; 84484; 85025; 85379; 85610; 93005; 93306; 93458; 99152; 99153; 99285; C1893; G0378; J0461; J1644; J1650; J2003; J2250; J2470; J3010; J7040; Q9966